=== PATIENT | female | born 1965 | race Caucasian/White ===

== ENCOUNTER 2017-04-05 06:29 | Inpatient (IN) | payer BC ==
[~2017-04-05] VITALS: Ht 162.6 cm; Wt 82.2 kg
[2017-04-05] VITALS (10 sets, daily range): BP systolic 97–136; BP diastolic 54–65; PULSE 59–77; RESP 17–20; Ht 162.6 cm; Wt 82.2 kg
--- NOTE | 2017-04-05 10:24 | HP ---
Date/Time of Note Date/Time of Note DATE: 04/05/17 TIME: 09:28 Assessment/Plan VTE Prophylaxis VTE Prophylaxis Intervention: SCD's Assessment/Plan Assessment/Plan 51 yo F transferred from [place] for evaluation of pleuritic Chest pain, cough - Chest Pain likely 2/2 atypical Pneumonia - Diabetes type 2 with hyperglycemia - HTN: controlled - Dyslipidemia PLAN: Complete ACS rule out, Symptoms likely 2/2 viral infection. Plan for d/c if patient rules out. Get A1c and titrate meds depending on results. HPI/ROS Admit Date/Time Admit Date/Time Apr 05, 2017 at 06:29 Hx of Present Illness This is a 51-year-old female that presented to the emergency room at [facility] with complaints of a 3 day history of pleuritic left- sided chest pain associated with runny nose and cough radiating to her right neck. Associated with shortness of breath, and nausea but no diaphoresis. No palpitations. Has been no real fever. But the report she had a previous nuclear medicine stress test December 2014 with good ejection fraction and normal perfusion of the left ventricle myocardium. Patient is a non-smoker. Periportally EKG and chest x-ray done at that facility did not show any significant abnormalities, but said imaging are not available here for my review. ROS 12 point review if systems was done and pertinent findings are as noted. PMH/Family/Social Past Medical History 1. Diabetes type 2 tube 2. Hypertension 3. Dyslipidemia 4. Chronic vertigo 5. Osteoporosis Past Surgical History 1. Hernia repair 2. Appendectomy 3. Cholecystectomy Exam/Review of Systems Vital Signs Vitals Vital Signs Date Time Temp Pulse Resp B/P Pulse Ox O2 Delivery O2 Flow Rate FiO2 04/05/17 08:21 98.0 62 19 123/61 95 Vital signs temperature 37 1, pulse 58, respirations 15, blood pressure 101 53, saturation is 96% on room air Exam Exam Constitutional: alert, oriented Head: atraumatic, normocephalic Neck: non-tender, supple Respiratory: clear to auscultation Cardiovascular: regular rate and rhythm Gastrointestinal: S/ NT / ND / +BS Extremities: no edema, good radial pulses Procedures Procedures Hemoglobin 18, hematocrit 57.4, platelets 131 which is slightly low, WBC 9.9, elevated lymphocyte levels at 40%. Sodium 135, potassium 4.1, chloride 95, CO2 27, BUN/creatinine within normal range. Glucose uncontrolled at 341, albumin and calcium within normal levels. Urinalysis showed significant grade glycosuria, trace ketones, was not suggestive of a urinary tract infection MAYELA IVY. Apr 05, 2017 09:39
[2017-04-05] MEDS ORDERED: GLUCAGON 1 MG INJ IM PRN (10:30)
[2017-04-05] MEDS ORDERED: DEXTROSE 50% 50 ML SYRINGE IV PRN ×2 (10:30)
[2017-04-05] MEDS ORDERED: GLUCOSE GEL 15 GRAM TUBE PO PRN ×2 (10:30)
[2017-04-05] MEDS ORDERED: GLUCOSE GEL 15 GRAM TUBE BUCCAL PRN (10:30)
[2017-04-05] MEDS: LEVOFLOXACIN 750MG/D5W (PMX) 150 ML IVPB SCH (10:38)
[2017-04-05 11:38] LABS: CREATINE KINASE 96 IU/L (23-200)
[2017-04-05 11:39] LABS: MAGNESIUM 1.6 mg/dl (1.7-2.5)
[2017-04-05 11:54] LABS: CK-MB < 0.22 ng/ml (0.0-2.4); TROPONIN-I < 0.012 ng/ml (0.00-0.12)
[2017-04-05 12:09] LABS: THYROID STIMULATING HORMONE 1.39 MIU/L (0.465-4.680)
[2017-04-05] MEDS: INSULIN ASPART [NOVOLOG] 3 ML PEN SC SCH ×3 (12:27→21:28)
[2017-04-05] MEDS ORDERED: MAGNESIUM SULFATE 2 GM/50 ML 50 ML IVPB ONE (13:30)
[2017-04-05] MEDS ORDERED: morphine 2 MG INJ IV PRN (13:30)
[2017-04-05] MEDS ORDERED: LEVO500T72 PO (15:16)
[2017-04-05] MEDS ORDERED: LANT3I SC (15:16)
[2017-04-05] MEDS ORDERED: INSULIN GLARGINE [LANtus] 3 ML PEN SC ONE (15:30)
[2017-04-05] MEDS ORDERED: ASPI81TA3 PO (15:49)
[2017-04-05] MEDS ORDERED: METF500T4 PO (15:49)
[2017-04-05] MEDS ORDERED: ATOR20TA38 PO (15:49)
[2017-04-05] MEDS ORDERED: [UNRECOGNIZED DRUG - CODE] PO (15:49)
[2017-04-05] MEDS ORDERED: NAPR-773 PO (15:49)
[2017-04-05 16:03] LABS: CREATINE KINASE 94 IU/L (23-200)
[2017-04-05 16:17] LABS: CK-MB < 0.22 ng/ml (0.0-2.4); TROPONIN-I < 0.012 ng/ml (0.00-0.12)
[2017-04-05] MEDS: metFORMIN 500 MG TAB PO SCH (18:43)
[2017-04-05] MEDS ORDERED: SUMATRIPTAN 6 MG/0.5 ML INJ SC ONE (20:30)
[2017-04-05] MEDS ORDERED: ATORVASTATIN 20 MG TAB PO SCH (21:00)
[2017-04-06] VITALS (8 sets, daily range): BP systolic 113–124; BP diastolic 63–74; PULSE 50–89; RESP 16–20
[2017-04-06] MEDS ORDERED: ACCU-CHEK XX SCH (02:00)
[2017-04-06 07:30] LABS: BASOPHILS % 0.5 % (0.0-2.0); EOSINOPHILS # 0.2 10^3/ul (0.0-0.5); EOSINOPHILS % 1.9 % (0.0-7.0); HEMATOCRIT 42.7 % (37.0-47.0); HEMOGLOBIN 14.6 g/dl (12.0-16.0); MEAN CORPUSCULAR HEMOGLOBIN 30.9 pg (29.0-33.0); MEAN CORPUSCULAR HGB CONC 34.2 g/dl (32.0-37.0); MEAN CORPUSCULAR VOLUME 90.3 fl (82.0-101.0); MEAN PLATELET VOLUME 12.4 fl (7.4-10.4); MONOCYTE # 0.6 10^3/ul (0.3-0.9); MONOCYTES % 7.7 % (0.0-11.0); NEUTROPHIL # 4.3 10^3/ul (1.6-7.5); NEUTROPHILS % 52.5 % (39.0-77.0); PLATELET COUNT 209 10^3/UL (140-415); RED BLOOD COUNT 4.73 10^6/ul (4.20-5.40); RED CELL DISTRIBUTION WIDTH 12.7 % (11.5-14.5); WHITE BLOOD COUNT 8.2 10^3/ul (4.8-10.8)
[2017-04-06 07:43] LABS: CALCIUM 8.7 mg/dl (8.4-10.2); CREATININE 0.53 mg/dl (0.44-1.00); POTASSIUM 3.9 mmol/L (3.5-5.1)
[2017-04-06] MEDS: metFORMIN 500 MG TAB PO SCH (07:53)
[2017-04-06] MEDS ORDERED: INSULIN GLARGINE [LANtus] 3 ML PEN SC SCH (08:00)
[2017-04-06] MEDS: INSULIN ASPART [NOVOLOG] 3 ML PEN SC SCH ×2 (08:03→12:12)
[2017-04-06] MEDS ORDERED: INFLUENZA VIRUS VACCINE 0.5 ML SYG IM* ONE (09:00)
[2017-04-06] MEDS ORDERED: ASPIRIN 81 MG TAB PO SCH (09:00)
[2017-04-06] MEDS: LEVOFLOXACIN 750MG/D5W (PMX) 150 ML IVPB SCH (09:13)
[2017-04-06] MEDS ORDERED: metFORMIN 500 MG TAB PO ONE (10:30)
[2017-04-06] MEDS ORDERED: NAPR-773 PO (11:26)
[2017-04-06] MEDS ORDERED: [UNRECOGNIZED DRUG - CODE] PO (11:26)
[2017-04-06] MEDS ORDERED: METF1000 PO (11:26)
--- NOTE | 2017-04-06 11:27 | PDOCDIS ---
Discharge Instructions DIAGNOSIS Discharge Diagnosis Atypical pneumonia CONDITION Patient Condition: Stable HOME CARE INSTRUCTIONS: Special Diet: 1800 CALORIE DIET ACTIVITY: Activity Restrictions: Slowly Increase Activity Rest between Activity FOLLOW UP/APPOINTMENTS Follow-up Plan Followup with your primary doctor within the next 1-2 weeks. If you don't have one please let someone know, we can give you resources that may help you pick one. You may call Dr Tr Patiño's office. he's accepting new patients Name, Degree: Tr Patiño MD Specialty: Internal Medicine Comments: Office Address: [address] [place] [address] [place] [address] Office Office You may also call your insurance company to assign one to you. Review your medication list with your nurse before leaving and if you need new prescriptions please let your nurse know. I may have made changes to your home medications or given you new prescriptions, please let your primary doctor know as well. Stay compliant with your medications and report any side effects to your PCP or pharmacist. Return to the ER if you have any concerns and cannot reach your doctors or call your insurance company, they usually have a nurse that can help you. MAYELA IVY Apr 06, 2017 11:27
--- NOTE | 2017-04-06 11:28 | DS ---
Date/Time of Note Date/Time of Note DATE: 04/06/17 TIME: 11:28 Discharge Summary Admission/Discharge Info Admit Date/Time Apr 05, 2017 at 06:29 Discharge Date/Time Discharge Diagnosis Atypical pneumonia Patient Condition: Stable Consults None . Hx of Present Illness This is a 51-year-old female that presented to the emergency room at [facility] with complaints of a 3 day history of pleuritic left- sided chest pain associated with runny nose and cough radiating to her right neck. Associated with shortness of breath, and nausea but no diaphoresis. No palpitations. Has been no real fever. But the report she had a previous nuclear medicine stress test December 2014 with good ejection fraction and normal perfusion of the left ventricle myocardium. Patient is a non-smoker. Periportally EKG and chest x-ray done at that facility did not show any significant abnormalities, but said imaging are not available here for my review. Hospital Course Full details are available in the chart for review, in summary this is a lady who came in with pleuritic chest pain as well as a history of cough and phlegm production, was reviewed at an outside ER, but due to had a history of uncontrolled diabetes, the emergency room doctor felt she should be ruled out for an acute coronary syndrome. She was admitted to us, monitor on telemetry, ruled out for an acute coronary syndrome and treated with antibiotics with significant improvement in her chest pain and her overall physical status. She will complete her antibiotic regimen at home with pills, as recommended to follow-up with her own primary care doctor within a week to 2. If chest pain persists she is encouraged to return to the emergency room, or speak to her primary care physician about an outpatient cardiology revisit referral for an outpatient stress test. This was complicated to her in detail and she verbalized understanding. Patient has been reviewed and evaluated today and is in stable condition for discharge. . Home Meds Active Scripts Metformin Hcl* (Metformin Hcl*) 1,000 Mg Tablet, 1000 MG PO WITH BREAKFAST DINNE , #60 TAB Prov:MAYELA IVY M. 04/06/17 Naproxen* (Naproxen*) 550 Mg Tablet, 550 MG PO BID Y for PAIN, #30 TAB Prov:MAYELA IVY M. 04/06/17 Meclizine Hcl (Verticalm) 25 Mg Tablet, 25 MG PO Q8H Y for dizziness, #14 TAB Prov:MAYELA IVY. 04/06/17 Insulin Glargine* (Lantus*) 100 Unit/Ml Soln, 12 UNIT SC QHS for 30 Days, #1 VIAL Prov:MAYELA IVY. 04/05/17 Levofloxacin* (Levaquin*) 500 Mg Tablet, 500 MG PO DAILY for 6 Days, TAB Prov:MAYELA IVY. 04/05/17 Reported Medications Atorvastatin Calcium* (Atorvastatin Calcium*) 20 Mg Tablet, 20 MG PO QHS, #30 TAB 04/05/17 Aspirin* (Aspirin* Chew) 81 Mg Tab.chew, 81 MG PO DAILY, TAB.CHEW 04/05/17 Discontinued Reported Medications Metformin* (Glucophage*) 500 Mg Tab, 500 MG PO WITH BREAKFAST DINNE, #30 TAB 04/05/17 Follow-up Plan Followup with your primary doctor within the next 1-2 weeks. If you don't have one please let someone know, we can give you resources that may help you pick one. You may call Dr Tr Patiño's office. he's accepting new patients Name, Degree: Tr Patiño MD Specialty: Internal Medicine Comments: Office Address: [address] [place] [address] Office Office You may also call your insurance company to assign one to you. Review your medication list with your nurse before leaving and if you need new prescriptions please let your nurse know. I may have made changes to your home medications or given you new prescriptions, please let your primary doctor know as well. Stay compliant with your medications and report any side effects to your PCP or pharmacist. Return to the ER if you have any concerns and cannot reach your doctors or call your insurance company, they usually have a nurse that can help you. Primary Care Provider Greg Parmar Time spent on discharge: > 30 minutes Pending Labs Laboratory Tests Test 04/05/17 12:15 04/05/17 15:25 04/05/17 18:45 04/05/17 21:23 Bedside Glucose 297mg/dL (70-220) 275mg/dL (70-220) 245mg/dL (70-220) Creatine Kinase 94IU/L (23-200) Creatine Kinase Index 0.2 Creatinine Kinase MB (Mass) < 0.22ng/ml (0.0-2.4) Troponin I < 0.012ng/ml (0.00-0.12) Test 04/06/17 02:59 04/06/17 06:33 04/06/17 07:51 Bedside Glucose 217mg/dL (70-220) 246mg/dL (70-220) White Blood Count 8.210^3/ul (4.8-10.8) Red Blood Count 4.7310^6/ul (4.20-5.40) Hemoglobin 14.6g/dl (12.0-16.0) Hematocrit 42.7% (37.0-47.0) Mean Corpuscular Volume 90.3fl (82.0-101.0) Mean Corpuscular Hemoglobin 30.9pg (29.0-33.0) Mean Corpuscular Hemoglobin Concent 34.2g/dl (32.0-37.0) Red Cell Distribution Width 12.7% (11.5-14.5) Platelet Count 18310^3/UL (140-415) Mean Platelet Volume 12.4fl (7.4-10.4) Neutrophils % 52.5% (39.0-77.0) Lymphocytes % 37.0% (15.0-51.0) Monocytes % 7.7% (0.0-11.0) Eosinophils % 1.9% (0.0-7.0) Basophils % 0.5% (0.0-2.0) Nucleated Red Blood Cells % 0.0/100WBC (0.0-0.0) Neutrophils # 4.310^3/ul (1.6-7.5) Lymphocytes # 3.010^3/ul (0.8-2.9) Monocytes # 0.610^3/ul (0.3-0.9) Eosinophils # 0.210^3/ul (0.0-0.5) Basophils # 0.010^3/ul (0.0-0.1) Nucleated Red Blood Cells # 0.010^3/ul (0.0-0.0) Sodium Level 137mmol/L (135-144) Potassium Level 3.9mmol/L (3.5-5.1) Chloride Level 101mmol/L (97-110) Carbon Dioxide Level 28mmol/L (21-31) Anion Gap 12 (8-16) Blood Urea Nitrogen 10mg/dl (7-20) Creatinine 0.53mg/dl (0.44-1.00) Glucose Level 265mg/dl (70-220) Calcium Level 8.7mg/dl (8.4-10.2) MAYELA IVY Apr 06, 2017 11:28
[2017-04-06] MEDS ORDERED: ACETAMINOPHEN 325 MG TAB PO PRN (11:30)
[2017-04-06] MEDS ORDERED: metFORMIN 500 MG TAB PO SCH (17:55)
== END 2017-04-06 16:07 | disposition home or self-care (01) | DRG 195 ==
LOC: TEL 06:29
PROVIDERS: ADMIT Internal Medicine; ATTEND Internal Medicine
DX: J18.9 Pneumonia, unspecified organism (principal); E11.65 Type 2 diabetes mellitus with hyperglycemia; I10 Essential (primary) hypertension; R07.9 Chest pain, unspecified; E78.5 Hyperlipidemia, unspecified; R05 Cough
CPT/HCPCS: 80048; 82550; 82553; 82962; 83036; 83735; 84443; 84484; 85025; 90686; J1815; J1956; J2270; J3030; J3475

== ENCOUNTER 2018-05-11 10:07 | Day surgery (SDC) | payer BC ==
[~2018-05-11] VITALS: Ht 152.4 cm; Wt 75.1 kg
[~2018-05-11 10:07] MED LIST: ASPI-903 PO; ATOR20TA38 PO; LANT3I SC; LEVO500T48 PO; METF100010 PO; NAPR-958 PO; [UNRECOGNIZED DRUG - CODE] PO
[2018-05-11 11:23] VITALS: Ht 152.4 cm; Wt 75.1 kg
[2018-05-11] MEDS ORDERED: LOSARTAN DAILY (11:38)
[2018-05-11] MEDS ORDERED: SIMV80TA18 PO (11:38)
[2018-05-11 11:52] VITALS: BP 127/62; PULSE 68; RESP 18
--- NOTE | 2018-05-11 12:07 | PREAC ---
Date/Time of Note Date/Time of Note DATE: 05/11/18 TIME: 12:06 Anesthesia Eval and Record Evaluation Time Pre-Procedure Interview DATE: 05/11/18 TIME: 12:06 Age 52 Sex female NPO: 8 hrs Preoperative diagnosis Abdominal Pain, Screening Planned procedure EGD, Colonoscopy Past Medical History Past Medical History: Includes Cardio: HTN, Dyslipidemia Endo: Diabetes Hepatic: Other (Fatty Liver) Psych: Anxiety Surgery & Anesthesia Issues No known issue Meds Anticoagulation: No Beta Alvin within 24 hr: No Reason Beta Alvin not given: Pt. not on B-Alvin Active Scripts Metformin Hcl* (Metformin Hcl*) 1,000 Mg Tablet, 1000 MG PO WITH BREAKFAST DINNE, #60 TAB Prov:BIJUELISABETPascale . 04/06/17 Naproxen* (Naproxen*) 550 Mg Tablet, 550 MG PO BID PRN for PAIN, #30 TAB Prov:BIJURUTHLEEROY . 04/06/17 Meclizine Hcl (Verticalm) 25 Mg Tablet, 25 MG PO Q8H PRN for dizziness, #14 TAB Prov:BIJURUTHLEEROY . 04/06/17 Reported Medications [Losartan Daily] No Conflict Check 05/11/18 Simvastatin* (Simvastatin*) 80 Mg Tablet, 80 MG PO QHS, #30 TAB 05/11/18 Atorvastatin Calcium* (Atorvastatin Calcium*) 20 Mg Tablet, 20 MG PO QHS, #30 TAB 04/05/17 Aspirin* (Aspirin* Chew) 81 Mg Tab.chew, 81 MG PO DAILY, TAB.CHEW 04/05/17 Discontinued Scripts Insulin Glargine* (Lantus*) 100 Unit/Ml Soln, 12 UNIT SC QHS for 30 Days, #1 VIAL Prov:ELISABET IVYPascale . 04/05/17 Levofloxacin* (Levaquin*) 500 Mg Tablet, 500 MG PO DAILY for 6 Days, TAB Prov:BIJUELISABETPascale . 04/05/17 Meds reviewed: Yes Allergies Coded Allergies: Penicillins (Verified Allergy, Unknown, 05/11/18) Allergies Reviewed: Yes Labs/Studies Labs Reviewed: Reviewed by anesthesiologist test: N/A Studies: ECG (n/a), CXR (n/a) Pre-procedure Exam Last vitals Vital Signs Date Temp Pulse Resp B/P (MAP) Pulse Ox O2 O2 Flow FiO2 Time Delivery Rate 05/11/18 96.6 68 18 127/62 98 Room Air 11:52 (83) Airway: Adequate mouth opening, Adequate thyromental dist Mallampati: Mallampati II Teeth: Normal Lung: Normal Heart: Normal ASA Physical Status ASA physical status: 3 Emergency: None Planned Anesthetic General/MAC: MAC Planned Pain Management Parenteral pain med Pre-operative Attestations Prior to commencing anesthesia and surgery, the patient was re-evaluated, there was verification of: *The patient's identity *The results of appropriate recent lab work and preoperative vital signs *The above evaluation not changing prior to induction *Anesthetic plan, risk benefits, alternative and complications discussed with patient/family; questions answered; patient/family understands, accepts and wishes to proceed. CHRISTOPH PRECIADO MD May 11, 2018 12:07
[2018-05-11] MEDS ORDERED: hydrALAzine 20 MG INJ IV PRN (12:30)
[2018-05-11] MEDS ORDERED: EPHEDrine SULFATE 50 MG/5 ML SYG IV PRN (12:30)
[2018-05-11] MEDS ORDERED: morphine (1 MG/ML) 10ML SYRINGE IV PRN ×2 (12:30)
[2018-05-11] MEDS ORDERED: FENTAnyl 50 MCG/ML VIAL IV PRN ×2 (12:30)
[2018-05-11] MEDS ORDERED: LABETALOL HCL 20MG INJ IV PRN (12:30)
[2018-05-11] MEDS ORDERED: ONDANSETRON 4 MG INJ IV PRN (12:30)
[2018-05-11] MEDS ORDERED: PROPOFOL 40 ML ONE (12:39)
--- NOTE | 2018-05-11 12:41 | PAC ---
Date/Time of Note Date/Time of Note DATE: 05/11/18 TIME: 12:40 Post-Anesthesia Notes Post-Anesthesia Note Last documented vital signs Vital Signs Date Temp Pulse Resp B/P (MAP) Pulse Ox O2 O2 Flow FiO2 Time Delivery Rate 05/11/18 96.6 68 18 127/62 98 Room Air 12:52 (83) Activity: WNL Respiratory function: WNL Cardiovascular function: WNL Mental status: Baseline Pain reasonably controlled: Yes Hydration appropriate: Yes Nausea/Vomiting absent: Yes CHRISTOPH PRECIADO MD May 11, 2018 12:41
== END 2018-05-11 17:14 | disposition home or self-care (01) ==
LOC: GIL 10:07
PROVIDERS: ATTEND Internal Medicine Gastroenterology
DX: Z12.11 Encounter for screening for malignant neoplasm of colon (principal); D12.5 Benign neoplasm of sigmoid colon; K64.8 Other hemorrhoids; R10.10 Upper abdominal pain, unspecified; I10 Essential (primary) hypertension; E78.5 Hyperlipidemia, unspecified; E11.9 Type 2 diabetes mellitus without complications
CPT/HCPCS: 43239; 45378; 88305; Z7610